=== PATIENT | female | born 2000 | race Caucasian/White ===

== ENCOUNTER 2025-01-28 09:26 | Emergency (ER) | payer SELFPAY ==
[2025-01-28 09:27] VITALS: BP 124/76
[2025-01-28 09:43] VITALS: BP 113/79
--- NOTE | 2025-01-28 09:59 | ED.GENMED ---
History of Present Illness
General
Chief Complaint: Abdominal Pain
Source: patient
Time Seen by Provider: 01/28/25 09:49
History of Present Illness
History of Present Illness:
24-year-old female with no significant past medical history presenting emergency department for evaluation of abdominal cramping/aching sensation noting she started her menstrual period this morning but states that the pain she felt is much more
severe than what her typical menstrual cramps are. She endorses nausea and vomiting accompanied with sensation of near syncope. Patient took 2 Tylenol with no relief. She does state a few years ago she did deal with heavier bleeding and cramping
during her menstrual but this seemed to have gotten better, today the worst its ever been. No history of ovarian cyst but notes that mother has a history of this. Denies any fevers, urinary symptoms, bowel changes or any other concerns. Social
history and surgical history are noncontributory. Patient states her menstrual's are normally regular and she has no concern for .
Past History
Past History
ED Past Medical History: None
ED Past Surgical History: None
Social History
Tobacco: Non-smoker
Alcohol: None
Drug: None
Personal: Single
Living: with family
Review of Systems
Review of Systems
All Other Systems: ROS reviewed and negative except as documented in HPI and ROS
Phy Exam
Physical Exam
Physical Exam:
GENERAL: Alert , in no apparent distress appears uncomfortable, somewhat pale
EYE: clear conjunctiva b/l
HEAD: NCAT
ENT: mmm.
CARDIAC: Bradycardic rate, normal rhythm
LUNGS: Clear breath sounds bilaterally, no acute respiratory distress, no wheezes/rales/rhonchi
ABDOMEN: Soft, generalized tenderness within the lower abdomen, no r/g, no cvat
NEUROLOGICAL: Alert and oriented
SKIN: Warm and dry, skin intact.
MUSCULOSKELETAL: well perfused.
PSYCH: Normal and appropriate interaction.
Scores
Heart Failure Risk
Heart Failure Risk Score: Not Applicable
Heart Score for Chest Pain Patients
STEMI patient?: Not applicable
Withdrawal Assessment of Alcohol
Withdrawal Assessment Completed?: Not applicable
Course
Orders/Labs/Results
Orders:
Orders
01/28/25 09:52
0.9% Sodium Chloride 1000 ml [Nss] 1,000 ml IV BOLUS
Test Result ONCE
01/28/25 09:55
Complete Blood Count/With Diff Urgent
Comprehensive Metabolic Panel Urgent
HCG, Serum Qualitative Screen Urgent
Lipase Urgent
01/28/25 09:58
Ketorolac [Toradol] 30 mg .ROUTE .STK-MED ONE
Ketorolac [Toradol] 30 mg IV NOW STA
Ondansetron Injectable [Zofran] 4 mg .ROUTE .STK-MED ONE
Ondansetron Injectable [Zofran] 4 mg IV NOW STA
01/28/25 10:09
US Pelvis Transvaginal Only Urgent
Comment:
Reason For Exam: lower abd pain, r/o torsion
01/28/25 11:04
Urinalysis Reflex To Culture Urgent
Date Specimen was Collected: 01/28/25
Time Specimen was Collected: 11:00
Urine Microscopic Reflex Cult Urgent
Urine Culture Urgent
LAVERNE Source: U
Specimen Description:
Date Specimen was Collected: 01/28/25
Time Specimen was Collected: 11:00
Abnormal Lab Results
01/28/25 01/28/25
09:55 11:04
WBC 13.4 H 10^3/uL
(4.8-10.8)
RBC 3.84 L 10^6/uL
(4.20-5.40)
Hgb 11.6 L g/dL
(12.0-16.0)
Hct 34.3 L %
(37.0-47.0)
MPV 10.8 H fL
(7.4-10.4)
Abs Immat Gran (auto) 0.1 H 10^3/uL
(0-0.05)
Absolute Neuts (auto) 11.5 H 10^3/uL
(1.4-6.5)
Absolute Lymphs (auto) 0.9 L 10^3/uL
(1.2-3.4)
Neutrophils % 85.6 H %
(42.2-75.2)
Lymphocytes % 6.7 L %
(20.5-51.1)
Glucose 114 H mg/dl
(70-99)
Urine Ketones 1+ A
(Negative)
Ur Occult Blood Reflex 4+ A
(Negative)
Urine RBC 11-15 A /HPF
(0-2)
Urine Bacteria (Reflex) Moderate A
(Negative)
Urine Albumin (Reflex) 1+ A
(Neg - Trace)
01/28/25 09:55
01/28/25 09:55
Vital Signs
Initial and Last Documented VS:
Initial Vital Signs
Pulse BP Pulse Ox
42 124/76 100
01/28/25 09:27 01/28/25 09:27 01/28/25 09:27
Last Documented Vital Signs
Temp Pulse Resp BP Pulse Ox
97.5 F 74 16 112/74 99
01/28/25 09:51 01/28/25 11:48 01/28/25 11:48 01/28/25 11:48 01/28/25 11:48
MDM/Problems Addressed
Differential Diagnosis Includes:
Dysmenorrhea, ovarian cyst, ovarian torsion, urinary tract infection, gastroenteritis, appendicitis, colitis
MDM/Problems Addressed:
24-year-old female presenting to the emergency department for evaluation of lower abdominal pain/cramping, started her menstrual this morning but states the menstrual cramping is much more severe than what she is normally used to. She did take some
Tylenol but without much relief. She does appear uncomfortable and was noted to be vomiting on arrival to the ER. Will treat with Toradol and Zofran. Transvaginal ultrasound ordered to ensure no torsion. I suspect patient's near syncope was
likely related to patient's pain and a vagal event. Disposition pending.
*Radiology
Radiology exam reviewed: radiology read reviewed
*Pulse Oximetry
Patient hypoxic: no
*Critical Care Note
Total Time (30-74mins, 75-104mins- exclusive of procedures): Not Applicable
Comment
Comment:
On reevaluation after returning from ultrasound patient notes continued improved pain. No longer nauseous. Labs reassuring although there is a mild leukocytosis which I suspect is likely from pain/vomiting as opposed to acute infection. Awaiting
ultrasound results. Disposition pending.
Patient Management
Escalation/DeEscalation of care consider admission/obs:
Ultrasound is unremarkable, no concern for torsion. Patient reports significantly improved symptoms and feels well to be discharged home. Advised on return precautions. Stable for discharge
ED Attending Note
-
Portions of this chart may have been created with voice recognition software.� Occasional wrong word or��sound alike� substitutions may have occurred due to the inherent limitations of voice recognition software.
Discharge Plan
Departure
Patient Disposition: Home (Routine Discharge)
Date of Disposition: 01/28/25
Time of Disposition: 11:41
Patient with high blood pressure during this ER visit?: No
Discharge Problem:
Dysmenorrhea
Instructions: Painful periods
Prescriptions:
No Action
Lexapro
1 tab PO . DIRECTED
spironolactone
1 tab PO . DIRECTED
Referrals:
Yanci Gold PA-C [Family Provider] -
Interventions
Interventions:
*Risk Screen - Suicide Last Done: 01/28/25 09:33
*General Assessment Last Done: 01/28/25 09:51
*Neglect/Abuse Screening Last Done: 01/28/25 09:33
*ED- Fall Risk Assessment Last Done: 01/28/25 09:51
*ED COVID-19 Vaccine History Last Done: 01/28/25 09:33
*Nursing Disposition Last Done: 01/28/25 11:48
[place]-Ewsqgx-Hlhkyssryt Assessment Last Done: 01/28/25 09:51
Discharge Date and Time
Discharge Date/Time: 01/28/25 11:48
Print Language: GEORGIAN
[2025-01-28] MEDS: NSS 1000 IV (10:04)
[2025-01-28] MEDS: ZOFRAN 4 MG IV (10:05)
[2025-01-28] MEDS: TORADOL 30 MG IV (10:05)
[2025-01-28 10:08] LABS: % Basophils 0.5 % (0-2); % Eosinophils 2.6 % (0-6); % Immature Granulocytes 0.4 % (0-0.5); % Lymphocytes 6.7 % (20.5-51.1); % Monocytes 4.2 % (1.7-9.3); % Neutrophils 85.6 % (42.2-75.2); Absolute Basophils 0.1 10^3/uL (0-0.2); Absolute Eosinophils 0.4 10^3/uL (0-0.7); Absolute Immature Granulocytes 0.1 10^3/uL (0-0.05); Absolute Lymphocytes 0.9 10^3/uL (1.2-3.4); Absolute Monocytes 0.6 10^3/uL (0.1-0.6); Absolute Neutrophils 11.5 10^3/uL (1.4-6.5); Hematocrit 34.3 % (37.0-47.0); Hemoglobin 11.6 g/dL (12.0-16.0); Mean Corp Hgb Conc. 33.8 g/dL (33.0-37.0); Mean Corpuscular Hgb 30.2 pg (27.0-31.0); Mean Corpuscular Volume 89.3 fL (81.0-99.0); Mean Platelet Volume 10.8 fL (7.4-10.4); Nucleated Red Blood Cells % 0 %; Platelet Count 276 10^3/uL (130-400); Red Blood Cell Count 3.84 10^6/uL (4.20-5.40); Red Cell Dist. Width 12.6 % (11.5-14.5); White Blood Cell Count 13.4 10^3/uL (4.8-10.8)
[2025-01-28 10:13] LABS: HCG, Serum Qualitative Screen Negative
[2025-01-28 10:15] LABS: ALT (SGPT) 20 U/L (0-35); AST (SGOT) 28 U/L (14-36); Albumin 4.5 g/dl (3.5-5.0); Alkaline Phosphatase 46 U/L (38-126); Blood Urea Nitrogen 15 mg/dl (7-17); Calcium 9.5 mg/dl (8.4-10.2); Carbon Dioxide 26 mmol/L (22-30); Chloride 106 mmol/L (98-107); Glucose 114 mg/dl (70-99); Lipase 120 U/L (23-300); Potassium 4.2 mmol/L (3.5-5.1); Sodium 142 mmol/L (135-145); Total Bilirubin 0.6 mg/dl (0.2-1.3); Total Protein 7.1 g/dl (6.3-8.2); eGFR > 60.00
[2025-01-28 10:43] VITALS: BP 104/71
[2025-01-28 10:44] VITALS: BP 104/71
[2025-01-28 11:23] LABS: Urine Albumin 1+ (Neg - Trace); Urine Bilirubin Negative (Negative); Urine Character Slightly Cloudy (Clear); Urine Color Yellow; Urine Glucose Negative (Negative); Urine Ketone 1+ (Negative); Urine Leukocyte Negative (Negative); Urine Nitrite Negative (Negative); Urine Occult Blood 4+ (Negative); Urine Urobilinogen Negative (Neg - 1+)
[2025-01-28 11:48] VITALS: BP 112/74
[2025-01-28 12:12] LABS: Urine Squamous Cell 0-2 /LPF (Few)
[2025-01-28 12:13] LABS: Urine Bacteria Moderate (Negative); Urine White Cell 0-2 /HPF (0-5)
== END 2025-01-28 11:48 | disposition home or self-care (01) ==
LOC: EMR 09:26
PROVIDERS: Physician Assistant Medical; EMERGENCY PHYSICIAN Emergency Medicine; FAMILY PHYSICIAN Physician Assistant
DX: N94.6 Dysmenorrhea, unspecified (principal)
CPT/HCPCS: 99284; 96374; 96375; 96361; 76830; 80053; 81003; 81015; 83690; 84703; 85025; 87086